=== PATIENT | female | born 1980 | race Caucasian/White ===

== ENCOUNTER → 2023-09-08 06:38 | Day surgery (SDC) | payer OTHER, SELFPAY | LOC: GI 06:38 | PROVIDERS: ATTENDING PHYSICIAN Internal Medicine | DX: Z12.11 Encounter for screening for malignant neoplasm of colon (principal); Z80.0 Family history of malignant neoplasm of digestive organs; K64.8 Other hemorrhoids; K64.4 Residual hemorrhoidal skin tags; K57.30 Diverticulosis of large intestine without perforation or abscess without bleeding; A63.0 Anogenital (venereal) warts | CPT/HCPCS: G0121 ==

== ENCOUNTER 2023-11-16 06:26 | Day surgery (SDC) | payer OTHER, SELFPAY ==
[2023-11-16] VITALS (7 sets, daily range): BP systolic 10–126; BP diastolic 69–89; BMI 34.3
[2023-11-16] MEDS: NORMOSOL-R 1000 IV (08:08)
[2023-11-16] MEDS: CELEBREX 200 MG PO (08:08)
[2023-11-16] MEDS: TYLENOL 1000 MG PO (08:08)
--- NOTE | 2023-11-16 10:30 | OR.RPT ---
Operative Report
Operative Report
DATE OF OPERATION: 11/16/2023
SURGEON: Sunil Ellison MD
PREOPERATIVE DIAGNOSIS: Anal skin tag, internal hemorrhoids
POSTOPERATIVE DIAGNOSIS: Anal skin tag, internal hemorrhoids
OPERATION: Exam under anesthesia, transanal hemorrhoidal dearterialization (suture ligation of hemorrhoids via U/S guidance), excision of anal skin tag, bilateral pudendal nerve block
ASSISTANTS:
1. None
ANESTHESIA: MAC w/ local
ESTIMATED BLOOD LOSS: 15 mL
FINDINGS:
1. Moderate-sized right posterior internal hemorrhoid with small external component, suture-ligated with THD guidance
2. Moderate sized right anterior internal hemorrhoid with small external component, suture-ligated with THD guidance
3. Small left lateral internal hemorrhoid with very small external component, suture-ligated with THD guidance
4. Large, about 2.5 cm, anal skin tag in the left anterior to anterior midline position; excised and defect closed with 2-0 Vicryl interrupted suture
SPECIMENS:
1. Anal skin tag
DRAINS: None
COMPLICATIONS: None
INDICATIONS: The patient is a 43-year-old female who presented with intermittent rectal bleeding and found to have irritated internal hemorrhoids as well as a large anal skin tag. Therefore, the patient was recommended to have surgery. I explained
that a suture hemorrhoidopexy under THD guidance would be the plan for any concerning internal hemorrhoids. However, if a hemorrhoid identified on exam under anesthesia is too large for a suture hemorrhoidopexy, I would perform an excisional
hemorrhoidectomy. The operation was discussed with the patient in detail, including the risks, benefits and alternatives. Risks described included, but not limited to bleeding, infection, urinary retention, damage to nearby structures such as the
anal sphincter, fecal incontinence, anal stenosis, recurrence, and anesthetic risks. The patient understood and agreed to proceed. The consent was signed and placed in the chart.
PROCEDURE IN DETAIL: The patient was taken to the operating room and placed on the operating table in prone position. Sequential compression devices were placed bilaterally. Sedation was commenced without complication. Two seat belts were secured
around the legs and upper back. The buttocks were taped apart. The perineum was shaved, prepped and draped in the usual fashion. A time-out was then performed verifying the correct patient, procedure, operative site, positioning, and special
equipment.
Local anesthesia used was a mixture of 60 mL of 0.25% Marcaine without epinephrine (with epinephrine was on backorder) and 0.6 mg of dexamethasone. 40 mL was injected perianally at the beginning of the case. The anorectal exam was performed
assessing all four quadrants of the anal canal using Hill-Cole retractors in progressively increasing size. There was a moderate-sized internal hemorrhoid in the left posterior position with a small external component. This was somewhat
irritated but not bleeding. There was a moderate-sized internal hemorrhoid in the left anterior position associated with a small external component and a large 2.5 cm anal skin tag. There was a small internal hemorrhoid in the left lateral
position with small external component that was not irritated or bleeding. There was also a rather small anal skin tag in the left anterior position, but this was likely not contributing to the patient's symptoms.
I elected to proceed with suture ligation and hemorrhoidopexy of the 3 identified internal hemorrhoids using THD guidance. Using the THD retractor with ultrasound probe, I identified the feeding vessel and ligated it with a 2-0 Vicryl in a
[id number] fashion, leaving the tail long. I took running mucosal bites of the hemorrhoid distally toward the dentate line, stopping 1 cm above the dentate line. I tied this down to the long tail in order to pexy the hemorrhoid. Hemostasis was
confirmed. The right anterior and right posterior internal hemorrhoids were ligated and pexied in this fashion. For the left lateral hemorrhoid, the feeding vessel was quite distal and therefore was ligated with a 2-0 Vicryl in a [id number]
fashion without a pexy. The anal canal was irrigated copiously with saline, checking for hemostasis, which was ensured.
The right anterior anal skin tag was then grasped and elevated with an Allis. Using a 15 blade scalpel, I incised the anoderm at the base of the hemorrhoid on the external side of it. I then used electrocautery to obtain hemostasis. I used a
Metzenbaum scissors to dissect the skin tag off of the sphincter and then excised the remaining tissue. I passed this off as specimen. I closed the defect in the anoderm with 2-0 Vicryl sutures in interrupted fashion. I then irrigated the anal
canal and checked for hemostasis in all 4 quadrants, which was confirmed. The remaining 20 mL of local were injected. 5 mL was injected bilaterally for a pudendal nerve block. 10 mL was injected around the surgical site and perianally. The smallest
Hill-Cole was used to check hemostasis once more, which was confirmed. Surgicel was placed in the anal canal prophylactically. I applied a layer of Dibucaine to the external portion of the incision.
At this point, the procedure was complete. All needle, sponge and instrument counts were correct. The patient tolerated the procedure well and was transferred to the recovery room in stable condition with gauze dressing in place secured with silk
tape.
DICTATED BY: Sunil Ellison MD
[2023-11-16] MEDS: DILAUDID 0.5 MG IV (10:38)
[2023-11-16] MEDS: ROXICODONE 5 MG PO (11:18)
[2023-11-16] MEDS: ZOFRAN 4 MG IV (11:37)
== END 2023-11-16 12:40 | disposition home or self-care (01) ==
LOC: SDS 06:26
PROVIDERS: ATTENDING PHYSICIAN Surgery
DX: K64.8 Other hemorrhoids (principal); K62.0 Anal polyp; K64.4 Residual hemorrhoidal skin tags
CPT/HCPCS: 46948; 46320; 88304

== ENCOUNTER → 2023-12-21 10:32 | Outpatient (REF) | payer OTHER, SELFPAY | LOC: RAD 10:32 | PROVIDERS: ATTENDING PHYSICIAN Physician Assistant | DX: M25.561 Pain in right knee (principal) | CPT/HCPCS: 73564 ==

== ENCOUNTER → 2024-08-28 17:40 | Outpatient (REF) | payer OTHER, SELFPAY | LOC: WDC 17:40 | PROVIDERS: ATTENDING PHYSICIAN Physician Assistant | DX: Z12.31 Encounter for screening mammogram for malignant neoplasm of breast (principal); Z12.39 Encounter for other screening for malignant neoplasm of breast | CPT/HCPCS: 77063; 77067 ==